=== PATIENT | male | born 1950 | race Caucasian/White ===

== ENCOUNTER 2018-10-17 07:21 | Observation (INO) | payer MEDICARE, OTHER ==
--- NOTE | 2018-10-10 10:56 | RADIOLOGY REPORT (SQ) ---
EXAM DESCRIPTION: CHEST PA/LATERAL COMPLETED DATE/TIME: 10/10/2018 10:23 am REASON FOR STUDY: COUGH;PRE-OP COMPARISON: None. EXAM PARAMETERS: NUMBER OF VIEWS: two views TECHNIQUE: Digital Frontal and Lateral radiographic views of the chest acquired. RADIATION DOSE: NA LIMITATIONS: none FINDINGS: LUNGS AND PLEURA: No opacities, masses or pneumothorax. No pleural effusion. MEDIASTINUM AND HILAR STRUCTURES: No masses or contour abnormalities. HEART AND VASCULAR STRUCTURES: Heart normal size. No evidence for failure. BONES: No acute findings. HARDWARE: None in the chest. OTHER: No other significant finding. IMPRESSION: NO SIGNIFICANT RADIOGRAPHIC FINDING IN THE CHEST. TECHNICAL DOCUMENTATION: JOB ID: [id number] [employer]- All Rights Reserved Reading location - IP/workstation name: [email or web address]
[2018-10-10 10:58] LABS: HEMATOCRIT 45.1 % (37.9-51.0); HEMOGLOBIN 15.3 g/dL (13.5-17.0); MEAN CORPUSCULAR HEMOGLOBIN 30.7 pg (27.0-33.4); MEAN CORPUSCULAR VOLUME 90 fl (80-97); PLATELET COUNT 157 10^3/uL (150-450); RED BLOOD COUNT 4.99 10^6/uL (4.35-5.55); RED CELL DISTRIBUTION WIDTH 14.8 % (11.5-14.0); WHITE BLOOD COUNT 10.2 10^3/uL (4.0-10.5)
[2018-10-10 11:06] LABS: ANION GAP 10 (5-19); BLOOD UREA NITROGEN 17 mg/dL (7-20); CALCIUM 9.5 mg/dL (8.4-10.2); CARBON DIOXIDE 27 mmol/L (22-30); CHLORIDE 101 mmol/L (98-107); GLUCOSE 127 mg/dL (75-110); POTASSIUM 4.1 mmol/L (3.6-5.0); SODIUM 138.2 mmol/L (137-145)
--- NOTE | 2018-10-10 22:57 | EKG REPORT ---
SEVERITY:- NORMAL ECG - SINUS RHYTHM : Confirmed by: Shivani Trimble MD 10-Oct-2018 22:56:17
[~2018-10-17 07:21] MED LIST: BUPIVACAINE HCL 0.25 % INJ/PF (2.5 MG/1 ML) 30 ML VIAL ONE; CEFAZOLIN 2 GM/D5W RTU 2 GM/50 ML RTUPB IV PRN; CEFAZOLIN SODIUM 2 GM in DEXTROSE 5%-WATER 100 ML IV PRN; IBUPROFEN 800 MG in NORMAL SALINE 250 ML IV PRN
[2018-10-17] MEDS ORDERED: CEFAZOLIN 2 GM/D5W RTU 2 GM/50 ML RTUPB IV ONE (07:29)
[2018-10-17 08:09] LABS: INTERNATIONAL RATION (INR) 0.92; PARTIAL THROMBOPLASTIN TIME 30.2 SEC (23.5-35.8); PROTHROMBIN TIME 12.8 SEC (11.4-15.4)
[2018-10-17] MEDS ORDERED: ALBUTEROL SULFATE 0.083% NEB 2.5 MG/3 ML AMPUL NEB ONE (08:29)
[2018-10-17] MEDS ORDERED: PROMETHAZINE HCL INJ 25 MG/1 ML VIAL ONE (09:45)
[2018-10-17] MEDS ORDERED: LIDOCAINE 2% INJ-PF (20 MG/ML) 10 ML AMPUL ONE (09:45)
[2018-10-17] MEDS ORDERED: MIDAZOLAM 2 MG/2 ML INJ ONE (09:45)
[2018-10-17] MEDS ORDERED: FENTANYL CITRATE INJ/PF 250 MCG/5 ML AMPULE ONE (09:45)
[2018-10-17] MEDS ORDERED: ACETAMINOPHEN 1,000 MG/100 ML RTUPB IV ONE (09:46)
[2018-10-17] MEDS ORDERED: DEXAMETHASONE SOD PHOSPHATE INJ 4 MG/1 ML VIAL ONE (09:46)
[2018-10-17] MEDS ORDERED: ONDANSETRON HCL INJ/PF 4 MG/2 ML SDV ONE (09:46)
[2018-10-17] MEDS ORDERED: EPHEDRINE SULFATE INJ 50 MG/1 ML AMPULE ONE (09:46)
[2018-10-17] MEDS ORDERED: HYDROMORPHONE HCL INJ/PF 2 MG/ML AMPULE ONE (09:46)
[2018-10-17] MEDS ORDERED: PROPOFOL INJ 200 MG/20 ML VIAL IV ONE (09:46)
[2018-10-17] MEDS ORDERED: SUCCINYLCHOLINE CHLORIDE INJ 200 MG/10 ML VIAL ONE (10:15)
[2018-10-17] MEDS ORDERED: ROCURONIUM BROMIDE INJ 50 MG/5 ML VIAL IV ONE (10:15)
[2018-10-17] MEDS ORDERED: GLYCOPYRROLATE 1 MG/5 ML SYRINGE ONE (10:15)
[2018-10-17] MEDS ORDERED: NEOSTIGMINE METHYLSULFATE 10 MG/10 ML VIAL ONE (10:15)
[2018-10-17] MEDS ORDERED: KETOROLAC TROMETHAMINE 60 MG/2 ML SDV ONE ×2 (10:15→15:52)
[2018-10-17] MEDS ORDERED: PROMETHAZINE HCL INJ 25 MG/1 ML VIAL IV PRN ×2 (11:50)
[2018-10-17] MEDS ORDERED: FENTANYL CITRATE INJ/PF 100 MCG/2 ML AMPUL IV PRN ×3 (11:50)
[2018-10-17] MEDS ORDERED: DIPHENHYDRAMINE HCL 50 MG/ML VIAL IV PRN (11:50)
[2018-10-17] MEDS ORDERED: MORPHINE SULFATE 10 MG/ML INJ IV PRN (11:50)
[2018-10-17] MEDS ORDERED: MEPERIDINE HCL/PF INJ 25 MG/1 ML DISP.SYRIN IV PRN (11:50)
--- NOTE | 2018-10-17 12:13 | Discharge Summary ---
Discharge Summary (SDC) - Discharge Final Diagnosis: Symptomatic umbilical hernia. Date of Surgery: 10/17/18 Discharge Date: 10/17/18 Condition: Stable Treatment or Instructions: Discharge home. Diet as tolerated. Activity: No lifting greater than 10 pounds x 6 weeks. Follow-up with me in 7-10 days. [place] 10/325 mg p.o. every 6 hours as needed for pain. Okay to shower in 48 hours. No tub baths or swimming pools times 2 weeks. Referrals: RAAD CRAWFORD JR, MD [Primary Care Provider] - Discharge Diet: As Tolerated Respiratory Treatments at Home: Deep Breathing/Coughing, Incentive Spirometer Discharge Activity: No Lifting Over 10 Pounds Home Care Assistance: None Needed Report the Following to Your Physician Immediately: Shortness of Breath, Nausea, Vomiting, Increase in Pain, Fever over 101 Degrees, Unusual Bleeding, Redness, Swelling, Warmth, Increased Soreness
--- NOTE | 2018-10-17 12:20 | Operative Report ---
Nonrecallable Operative Report DATE OF SURGERY: 10/17/18 PREOPERATIVE DIAGNOSIS: Symptomatic umbilical hernia POSTOPERATIVE DIAGNOSIS: Same as above. OPERATION: Robot-assisted laparoscopic ventral hernia repair with mesh. SURGEON: SOHAN RAMÍREZ 1ST ENVIRONMENTAL MANAGEMENT SPECIALIST: CLAUDIA JONES ANESTHESIA: GA TISSUE REMOVED OR ALTERED: None COMPLICATIONS: None apparent ESTIMATED BLOOD LOSS: Minimal PROCEDURE: Drains/implants: [address] Procedure in detail: After informed consent was obtained, the patient was brought to the operating room and laid in the supine position. The area of the abdomen was prepped and draped in a normal sterile fashion. An incision was created in the left upper quadrant with a 15 blade scalpel. The camera and a 5 mm trocar were introduced into the abdominal cavity using the Optiview technique. Gas insufflation was attached, and pneumoperitoneum was achieved. An 8 mm robotic trocar was then placed in the left lower quadrant under direct laparoscopic visualization, as well as a 12 mm balloon trocar in the left lateral abdomen. The 5 mm trocar was removed and replaced with an 8 mm robotic trocar in the left upper quadrant. The robot was then brought up to the patient and docked appropriately. I assumed my position at the surgeon's console. Attention was turned to the umbilical hernia defect. It appeared to be approximately 2 cm in total diameter. Secondary to this, an 11 cm round ventral light hernia mesh was chosen to adequately cover the defect. The defect was sutured closed using number 1 V lock suture in simple running fashion. Next, the hernia mesh was apposed to the anterior abdominal wall using the EPS. The mesh was sutured to the anterior abdominal wall using 2-0 V lock suture in simple running fashion. Once this was completed, the mesh was found to lie in good place. The robot was undocked, and I scrubbed back into the case. The 8 mm trochars were closed using 0 Vicryl suture in simple interrupted fashion using the Endo Close device. The trochars were then removed and pneumoperitoneum was relieved. The left lower quadrant 12 mm trocar site was closed under direct vision using 0 Vicryl suture in [id number] fashion. Once this was completed, the overlying skin was closed using 4-0 Vicryl Rapide suture in subcuticular fashion. Dressings were placed and the procedure was concluded. All sponge, instrument, and needle counts were correct x2. Condition: Stable. Claudia Jones PA-C was scrubbed and present the entirety of the procedure. She assisted with all portions of the procedure including placement of the trochars, docking of the robot, exchanging of the robotic instruments, closure of the fascia, and closure of the skin.
[2018-10-17] MEDS ORDERED: ATROPINE SULFATE INJ 1 MG/10 ML DISP.SYRIN IV ONE (12:32)
[2018-10-17] MEDS: NALOXONE HCL INJ/PF 0.4 MG/1 ML SDV ONE ×2 (13:21→13:25)
[2018-10-17] MEDS: FLUMAZENIL INJ 0.5 MG/5 ML VIAL ONE ×2 (13:27→13:29)
[2018-10-17] MEDS ORDERED: GLYCOPYRROLATE INJ 0.4 MG/2 ML VIAL ONE (14:15)
[2018-10-17] MEDS ORDERED: FLUMAZENIL INJ 0.5 MG/5 ML VIAL ONE (15:36)
[2018-10-17] MEDS ORDERED: LABETALOL HCL INJ 20 MG/4 ML DISP.SYRIN IV ONE (15:52)
[2018-10-17] MEDS ORDERED: ONDANSETRON HCL INJ/PF 4 MG/2 ML SDV IV PRN (16:19)
[2018-10-18] MEDS: OXYCODONE-ACETAMINOPHEN 5-325 MG TABLET PO PRN ×2 (01:04→08:54)
--- NOTE | 2018-10-18 10:25 | PDOC DISCHARGE SUMMARY ---
General - Admit/Disc Date/PCP Admission Date/Primary Care Provider: RAAD CRAWFORD JR, MD Discharge Date: 10/18/18 - Discharge Diagnosis (1) Bradycardia associated with anesthesia Is this a current diagnosis for this admission?: Yes - Additional Information Discharge Diet: As Tolerated Discharge Activity: No Lifting Over 10 Pounds Home Medications: Cetirizine HCl [Zyrtec 10 mg Tablet] 1 tab PO DAILY 10/10/18 Cyclobenzaprine HCl [Flexeril 5 mg Tablet] 5 mg PO BID 10/10/18 Empagliflozin [Jardiance] 25 mg PO QAM 10/10/18 Fluticasone Propionate [Flonase Nasal [place] 50 Mcg/[place] 16 gm] 1 spray NASL Q12 10/10/18 Glimepiride [Amaryl 4 mg Tablet] 4 mg PO DAILY 10/10/18 Guaifenesin/Dextromethorphan [Mucinex Dm ER 1,200-60 mg Tab] 1 each PO PRN 10/10/18 Hydrochlorothiazide [Hydrodiuril 25 mg Tablet] 25 mg PO QAM 10/10/18 Ketoconazole [Nizoral] 30 gm TP 10/10/18 Methocarbamol [Robaxin 500 mg Tablet] 500 mg PO QID 10/10/18 Rivaroxaban [Xarelto] 20 mg PO DAILY 10/10/18 Sitagliptin Phos/Metformin HCl [Janumet 50-1,000 Mg Tablet] 1 each PO BID 10/10/18 History of Present Illness History of Present Illness: TARA ONEILL is a 68 year old male who underwent robot-assisted laparoscopic ventral hernia repair yesterday. The patient had bradycardia after anesthesia. It was asymptomatic, and that his blood pressure was normal the entire time. The patient was observed overnight due to his asymptomatic bradycardia. Hospital Course Hospital Course: The patient was admitted to the hospital, and placed on telemetry. I contacted Dr. Trimble for an opinion regarding the patient's asymptomatic bradycardia. Dr. Trimble prefers to see Mr. Oneill as an outpatient. The patient's heart rate improved overnight. He currently has no bradycardia. He is ambulating, tolerating a diet, and at this time it was felt that he had reached maximal hospital benefit and was fit for discharge. Physical Exam Vital Signs: Temp Pulse Resp BP Pulse Ox 98.3 F 75 18 159/67 H 98 10/18/18 08:07 10/18/18 08:07 10/18/18 08:07 10/18/18 08:07 10/18/18 08:07 Intake & Output 10/17/18 10/18/18 10/19/18 06:59 06:59 06:59 Intake Total 2722 Output Total 2410 Balance 312 Weight 92.2 kg Results Laboratory Results: 10/10/18 09:39 10/17/18 07:40 Impressions: Chest X-Ray 10/10/18 10:10 IMPRESSION: NO SIGNIFICANT RADIOGRAPHIC FINDING IN THE CHEST. Qualifiers - * PATIENT BEING DISCHARGED WITH ANY OF THE FOLLOWING DIAGNOSIS: No Plan Discharge Plan: Discharge home. Diet as tolerated. Activity: No lifting greater than 10 pounds x 6 weeks. Follow-up with me in 7-10 days. Follow-up Dr. Trimble as an outpatient. [place] 10/325 mg p.o. every 6 hours as needed for pain. Okay to shower starting tomorrow. No tub baths or swimming pools times 2 weeks. Time Spent: Less than 30 Minutes
[2018-10-18 11:31] VITALS: BP 156/88
== END 2018-10-18 11:45 | disposition home or self-care (01) ==
LOC: OROUT 07:21 → INOR 16:19 → 4N 16:30 → OROUT 10-18 11:45
PROVIDERS: ADMIT Surgery; ATTEND Surgery
PROC: 8E0W4CZ Robotic Assisted Procedure of Trunk Region, Percutaneous Endoscopic Approach (ICD-10-PCS; 2018-10-17)
PROC: 0WUF4JZ Supplement Abdominal Wall with Synthetic Substitute, Percutaneous Endoscopic Approach (ICD-10-PCS; principal; 2018-10-17 09:30)
DX: T88.59XA Other complications of anesthesia, initial encounter (principal); Y92.239 Unspecified place in hospital as the place of occurrence of the external cause; Y84.8 Other medical procedures as the cause of abnormal reaction of the patient, or of later complication, without mention of misadventure at the time of the procedure; K42.9 Umbilical hernia without obstruction or gangrene; E11.9 Type 2 diabetes mellitus without complications; I10 Essential (primary) hypertension; Z86.718 Personal history of other venous thrombosis and embolism; Z02.89 Encounter for other administrative examinations; H90.5 Unspecified sensorineural hearing loss; E78.5 Hyperlipidemia, unspecified; J44.9 Chronic obstructive pulmonary disease, unspecified; F17.200 Nicotine dependence, unspecified, uncomplicated; G47.419 Narcolepsy without cataplexy; M62.08 Separation of muscle (nontraumatic), other site; Z79.899 Other long term (current) drug therapy; Z85.038 Personal history of other malignant neoplasm of large intestine; Z79.02 Long term (current) use of antithrombotics/antiplatelets
CPT/HCPCS: 93005; 86900; 86901; 36415 ×2; 86850; 82962; 84132; 85027; 85610; 85730; 80048; 71046; 93010; 94640; 49652; C1781; J3490 ×5; J2250; J0690 ×2; J1100; J1885; J3010; J2310; A9270 ×2; J1170; J2550; J0330; J2405; J7050; J2704; J0131; J1741; 750; G0378; G0379; J0461